=== PATIENT | female | born 1955 | race Caucasian/White ===

== ENCOUNTER 2025-04-10 15:05 | Emergency (ER) | payer MEDICARE, SELFPAY ==
[2025-04-10 15:13] VITALS: BP 132/56; PULSE 79; TEMP 37; O2SAT 97; BMI 19.7
--- NOTE | 2025-04-10 15:33 | XR_ITS ---
The [address] [address] Patient Name: RACHID VELASQUEZ MRN: [id number] date: 1955 Sex: F Assigned Patient Location: ER Current Patient Location: ED.MAIN Accession/Order Number: [id number] Exam Date: 04/10/2025 16:00 Report Date: 04/10/2025 16:34 At the request of: MURPHY CORTEZ MD Procedure: XR chest 1V PA CHEST: CLINICAL HISTORY: Cough COMPARISON: None Unremarkable cardiomediastinal silhouette. Lungs are grossly clear. No effusion or pneumothorax. XR/XR chest 1V IMPRESSION: Negative acute pleural-parenchymal disease. Impression dictated by: Umberto Floyd M.D. 04/10/2025 4:34 PM Dictation Location: [place] [address] Electronically authenticated by: [id number] Y Date: 04/10/2025 16:34
--- NOTE | 2025-04-10 15:41 | ED.GENADUL1 ---
HPI HPI - General Adult General Chief complaint: Upper Respiratory Infection Stated complaint: Upper Respiratory Infection Time Seen by Provider: 04/10/25 15:20 Source: patient Mode of arrival: walk-in History of Present Illness HPI narrative: 69-year-old female presents for cough. She has had it for a few days and she is coughing up some clear yellow phlegm. No hemoptysis or fever. She has been using her inhaler and nebulizer at home. No fever. Related Data Home Medications ?Medication ?Instructions ?Recorded ?Confirmed albuterol sulfate 2.5 mg/3 mL mg 04/10/25 (0.083 %) solution for nebulization albuterol sulfate 90 mcg/actuation inhalation 04/10/25 aerosol inhaler calcium 600 mg (as tab PO 04/10/25 carbonate)-vitamin D3 10 mcg (400 unit) tablet insulin lispro 100 unit/mL 04/10/25 subcutaneous solution (Humalog U-100 Insulin) umeclidinium 62.5 mcg-vilanterol inhalation 04/10/25 25 mcg/actuation powdr for inhalation (Anoro Ellipta) Previous Rx's ?Medication ?Instructions ?Recorded azithromycin 250 mg tablet See Rx Instructions PO .COMPLEX #6 04/10/25 (Zithromax Z-Wesley) tabs benzonatate 100 mg capsule 100 mg PO TID PRN cough #20 caps 04/10/25 Allergies Allergy/AdvReac Type Severity Reaction Status Date / Time Penicillins Allergy Rash Verified 04/10/25 15:12 Review of Systems ROS Narrative A ten point review of systems is negative except as noted above. PFSH PFSH Social History Little interest or pleasure in doing things: not at all Feeling down, depressed, or hopeless: not at all Exam Narrative Exam Narrative: Nurses note and vital signs reviewed General:The patient appears in no acute respiratory distress. She speaking in full sentences Skin:Warm, dry, no pallor noted.There is no rash noted. Head:Normocephalic, atraumatic Eye: Normal conjunctiva, no drainage Ears, Nose, Mouth, and Throat: oral mucosa is moist. Nares patent. Cardiovascular:Regular Rate and Rhythm Respiratory:Patient is in no distress, no accessory muscle use, lungs are clear to auscultation, no wheezing, rales or rhonchi. Good air movement present Back:non-tender GI: Soft and nontender Musculoskeletal: The patient has no evidence of calf tenderness, no pitting edema, symmetrical pulses noted bilaterally Neurological:A&O, normal speech Psychiatric:Cooperative Constitutional Vital Signs, click to edit/add: Last Vital Signs Temp 98.6 F 04/10/25 15:13 Pulse 79 04/10/25 15:13 Resp 20 04/10/25 15:13 BP 132/56 04/10/25 15:13 Pulse Ox 97 04/10/25 15:13 O2 Del Method Room Air 04/10/25 15:13 Course Vital Signs Vital signs: Vital Signs Temperature 98.6 F 04/10/25 15:13 Pulse Rate 79 04/10/25 15:13 Respiratory Rate 20 04/10/25 15:13 Blood Pressure 132/56 04/10/25 15:13 Pulse Oximetry 97 04/10/25 15:13 Oxygen Delivery Method Room Air 04/10/25 15:13 Temperature 98.6 F 04/10/25 15:13 Pulse Rate 79 04/10/25 15:13 Respiratory Rate 20 04/10/25 15:13 Blood Pressure 132/56 04/10/25 15:13 Pulse Oximetry 97 04/10/25 15:13 Oxygen Delivery Method Room Air 04/10/25 15:13 Medical Decision Making MDM Narrative Medical decision making narrative: Chest x-ray, COVID, and influenza test are all negative. She is treated with Zithromax and Tessalon. We will avoid steroids because she is a type I diabetic and has issues with steroids. Treatment diagnosis and follow-up were discussed with the patient. Differential Diagnosis Differential Diagnosis: URI, pneumonia, COVID, influenza Lab Data Lab results reviewed: Yes I reviewed the patient's lab results Labs: Lab Results 04/10/25 Range/Units 15:45 Influenza Type A Ag Negative Influenza Type B Ag Negative SARS-CoV-2 Ag (CV2AG) Negative (NEGATIVE) Imaging Data Chest x-ray: Radiologist's impression: ITS Impressions Chest X-Ray 04/10/25 15:33 IMPRESSION: Negative acute pleural-parenchymal disease. Impression dictated by: Umberto Floyd M.D. 04/10/2025 4:34 PM Dictation Location: [place] [address] Electronically authenticated by: [id number] Y Date: 04/10/2025 16:34 Discharge Plan Discharge Chief Complaint: Upper Respiratory Infection Clinical Impression: Upper respiratory infection Patient Disposition: Home, Self-Care Time of Disposition Decision: 16:48 Condition: Good Mode of Transportation: Private Vehicle Prescriptions / Home Meds: New azithromycin [Zithromax Z-Wesley] 250 mg tablet See Rx Instructions .ROUTE .COMPLEX Qty: 6 0RF Rx Instructions: For 250 mg dose pack: take 500 mg today (day 1), then 250 mg for 4 days (days 2-5) benzonatate 100 mg capsule 100 mg PO TID PRN (Reason: cough) Qty: 20 0RF No Action albuterol sulfate 2.5 mg /3 mL (0.083 %) solution for nebulization insulin lispro [Humalog U-100 Insulin] 100 unit/mL solution albuterol sulfate 90 mcg/actuation HFA aerosol inhaler INHALATION calcium carbonate-vitamin D3 600 mg-10 mcg (400 unit) tablet PO umeclidinium-vilanterol [Anoro Ellipta] 62.5-25 mcg/actuation blister with device INHALATION Print Language: Nigerian Instructions: Upper Respiratory Infection (ED) Referrals: LUPIS DELEON [Primary Care Provider, Family Practice] - 1 week
[2025-04-10 16:05] LABS: SARS-CoV-2 Ag NEGATIVE (NEGATIVE)
== END 2025-04-10 17:17 | disposition home or self-care (01) ==
PROVIDERS: Emergency Provider Emergency Medicine; PCP Family Medicine
DX: J06.9 Acute upper respiratory infection, unspecified (principal); E10.9 Type 1 diabetes mellitus without complications; Z79.4 Long term (current) use of insulin
CPT/HCPCS: 71045; 87804; 87811; 99285